=== PATIENT | male | born 1955 | race Caucasian/White ===

== ENCOUNTER 2019-11-28 11:08 | Day surgery (SDC) | payer MEDICARE ==
[~2019-11-28] VITALS: Ht 172.7 cm; Wt 79.0 kg
[2019-11-28] MEDS ORDERED: LACTATED RINGERS 1,000 ML IV SCH (11:47)
[2019-11-28] MEDS ORDERED: ATOR20TA37 PO (11:48)
[2019-11-28] MEDS ORDERED: CHLORHEXIDINE 15 ML UDC MM ONE (12:00)
[2019-11-28 12:07] VITALS: BP 150/93
[2019-11-28] MEDS ORDERED: LIDOCAINE-MPF 2% ,5ML ONE (13:12)
[2019-11-28] MEDS ORDERED: ROCURONIUM 10MG/ML,5ML ONE (13:12)
[2019-11-28] MEDS ORDERED: PROPOFOL 10 MG/ML, 20ML ONE (13:12)
[2019-11-28] MEDS ORDERED: GLYCOPYRROLATE 0.2MG/1ML, 5ML ONE (13:12)
[2019-11-28] MEDS ORDERED: DEXAMETHASONE 4 MG/ML, 1ML ONE (13:12)
[2019-11-28] MEDS ORDERED: MIDAZOLAM 1 MG/ML, 2ML ONE (13:13)
[2019-11-28] MEDS ORDERED: FENTANYL PF 250 MCG/5ML ONE (13:13)
[2019-11-28] MEDS ORDERED: DIPHENHYDRAMINE 50 MG/ML, 1ML IVPush PRN (13:30)
[2019-11-28] MEDS ORDERED: FENTANYL PF 100 MCG/2ML IV PRN (13:30)
[2019-11-28] MEDS ORDERED: EPHEDRINE 50 MG/ML, 1ML IVPush PRN (13:30)
[2019-11-28] MEDS ORDERED: HALOPERIDOL 5 MG/ML IV PRN (13:30)
[2019-11-28] MEDS ORDERED: MEPERIDINE/PF 25MG/0.5ML IVPush PRN (13:30)
[2019-11-28] MEDS ORDERED: METHOCARBAMOL 1,000 MG in DEXTROSE 5% 100 ML IV PRN (13:30)
[2019-11-28] MEDS ORDERED: ONDANSETRON 2MG/ML, 2ML IVPush PRN (13:30)
[2019-11-28] MEDS ORDERED: LORazepam 2 MG/ML, 1ML IVPush PRN (13:30)
[2019-11-28] MEDS ORDERED: ACETAMINOPHEN 325 MG TABLET PO PRN (13:30)
[2019-11-28] MEDS ORDERED: KETOROLAC 30 MG/1 ML IVPush PRN (13:30)
[2019-11-28] MEDS ORDERED: HYDROcodone/APAP 7.5-325MG/15ML UDC PO PRN (13:30)
[2019-11-28] MEDS ORDERED: hydrALAzine 20 MG/ML, 1ML IV PRN (13:30)
[2019-11-28] MEDS ORDERED: DIAZEPAM 5 MG/ML, 2ML IVPush PRN (13:30)
[2019-11-28] MEDS ORDERED: MIDAZOLAM 1 MG/ML, 2ML IV PRN (13:30)
[2019-11-28] MEDS ORDERED: HYDROmorphone 1 MG/ML, 1ML INJ IVPush PRN (13:30)
[2019-11-28] MEDS ORDERED: ALBUTEROL/IPRATROPIUM 2.5MG/0.5MG, 3 ML NPPB PRN (13:30)
[2019-11-28] MEDS ORDERED: OXYcodone 5 MG/5 ML ORAL.SOL UDC PO PRN (13:30)
[2019-11-28] MEDS ORDERED: EPHEDRINE 50 MG/ML, 1ML IM PRN (13:30)
[2019-11-28] MEDS ORDERED: METOCLOPRAMIDE 5 MG/ML, 2ML IVPush PRN (13:30)
[2019-11-28] MEDS ORDERED: LABETALOL 5MG/ML, 20ML IV PRN (13:30)
[2019-11-28] MEDS ORDERED: CEFAZOLIN 1,000 MG ONE (14:22)
[2019-11-28] MEDS ORDERED: BACITRACIN 50,000 UNIT ONE (15:44)
[2019-11-28] MEDS ORDERED: NEOSPORIN OINT, 15GM ONE (15:45)
[2019-11-28] MEDS ORDERED: BUPIVACAINE/PF 0.25% ONE (15:46)
== END 2019-11-28 18:55 | disposition home or self-care (01) ==
LOC: OUT 11:08
PROVIDERS: ATTEND Urology
DX: N13.2 Hydronephrosis with renal and ureteral calculous obstruction (principal); N28.89 Other specified disorders of kidney and ureter; N40.0 Benign prostatic hyperplasia without lower urinary tract symptoms; E78.00 Pure hypercholesterolemia, unspecified; Z79.899 Other long term (current) drug therapy; Z72.89 Other problems related to lifestyle; Z87.891 Personal history of nicotine dependence; Z98.890 Other specified postprocedural states
CPT/HCPCS: 52204; 52356; 74420; 82360; 87635; 88300; 88305; 93005; C1769; C2617; J0690; J1100; J2250; J2704; J3010; J3490